=== PATIENT | male | born 1985 | race Asian ===

== ENCOUNTER 2018-09-14 19:57 | Emergency (ER) | payer SELFPAY ==
[~2018-09-14] VITALS: Ht 180.3 cm; Wt 121.2 kg
[2018-09-14 20:08] VITALS: BP 159/97
[2018-09-14] MEDS ORDERED: KETOROLAC 30 MG/1 ML ONE (20:19)
[2018-09-14] MEDS ORDERED: KETOROLAC 30 MG/1 ML IM ONE (20:30)
[2018-09-14 20:33] LABS: MEAN CORPUSCULAR HEMOGLOBIN 28.6 pg (27.5-34.5); MEAN CORPUSCULAR HGB CONC 33.7 g/dL (33.2-36.2); MEAN CORPUSCULAR VOLUME 84.7 fL (81-97); MEAN PLATELET VOLUME 7.3 fL (7.4-10.4); PLATELET COUNT 442 x10^3/uL (130-400); RED BLOOD COUNT 5.42 x10^6/uL (4.38-5.82); RED CELL DISTRIBUTION WIDTH 13.1 % (9.4-14.8)
[2018-09-14 20:34] LABS: BASOPHILS # (AUTO) 0.06 x10^3/uL (0-0.1); BASOPHILS % (AUTO) 1 % (0-1); EOSINOPHILS # (AUTO) 0.04 x10^3/uL (0-0.4); EOSINOPHILS % (AUTO) 0 % (1-7); LYMPHOCYTES # (AUTO) 2.13 x10^3/uL (1-3.4); LYMPHOCYTES % (AUTO) 19 % (22-44); MD NO; MONOCYTES # (AUTO) 0.91 x10^3/uL (0.2-0.8); MONOCYTES % (AUTO) 8 % (2-9); NEUTROPHILS % (AUTO) 72 % (42-75)
== END 2018-09-14 21:01 | disposition home or self-care (01) ==
LOC: ED 20:45
DX: M10.071 Idiopathic gout, right ankle and foot (principal)
CPT/HCPCS: 36415; 73610; 84550; 85025; 96372; 99284; J1885